=== PATIENT | female | born 1985 | race African-American/Black ===

== ENCOUNTER 2016-10-11 23:58 | Emergency (ER) | payer SELFPAY ==
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
[~2016-10-11 23:58] MED LIST: NO MEDICATIONS
== END 2016-10-12 00:57 | disposition home or self-care (01) ==
LOC: SED 23:58
DX: S39.012A Strain of muscle, fascia and tendon of lower back, initial encounter (principal); S29.012A Strain of muscle and tendon of back wall of thorax, initial encounter; F17.200 Nicotine dependence, unspecified, uncomplicated; V49.40XA Driver injured in collision with unspecified motor vehicles in traffic accident, initial encounter
CPT/HCPCS: 72040; 72100; 73030; 73630; 84703; 99284